=== PATIENT | male | born 1955 | race Caucasian/White ===

== ENCOUNTER 2021-03-30 16:36 | Emergency (ER) | payer MEDICARE, SELFPAY ==
--- NOTE | ~2021-03-30 | XR_ITS ---
EXAMINATION: XR chest 1V portable EXAM DATE: 03/30/2021 17:55 INDICATION: fever, cough, covid pui . TECHNIQUE: Portable AP frontal chest x-ray was obtained. There is no prior study for comparison. FINDINGS: There is moderate amount of bilateral ill-defined acute airspace disease consistent with CO VID pneumonia, most likely given community prevalence. No pneumothorax or pleural effusion. There is cardiomegaly. Mild to moderate thoracic spondylosis. IMPRESSION: 1. Moderate amount of acute airspace disease. COVID pneumonia? Reviewed, dictated and finalized at location A. PROGRAMMER
[2021-03-30 16:45] VITALS: BP 152/70; PULSE 90; RESP 18; TEMP 36.7; O2SAT 96
--- NOTE | 2021-03-30 18:52 | ED.URI ---
HPI - URI/Sore Throat General Chief Complaint: Upper Respiratory Infection Stated Complaint: i think i have covid Time Seen by Provider: 03/30/21 17:33 Source: patient Mode of arrival: ambulatory Limitations: no limitations History of Present Illness HPI Narrative: This is a 66 year old male that presents to the ER for cold symptoms present over the last week. Reports fever, myalgias and loss of sense of taste. He is not COVID vaccinated. Denies chest pain or shortness of breath. Review of Systems Review of Systems: CONSTITUTIONAL: Reports fever CARDIOVASCULAR: Denies chest pain RESPIRATORY: Denies cough or dyspnea. All systems reviewed & are unremarkable except as noted in HPI and below PMFSH Past Medical History Medical History (Updated 03/30/21 @ 19:43 by Emelina Webber PA-C) No active medical problems Social History Social History (Updated 03/30/21 @ 18:55 by Emelina Webber PA-C) Substance use: never Exam Narrative: GENERAL: Well-appearing, well-nourished, and in no acute distress. HEAD: Normocephalic, atraumatic. EYES: EOMI. ENT: Nares clear, no rhinorrhea or epistaxis. Mucous membranes moist. Oropharynx without tonsillar hypertrophy exudate or other lesions. Bilateral TMs pearly hernández non-bulging NECK: Supple. No adenopathy or masses. CHEST: No respiratory distress. Rales noted at the lung bases. No wheezes or rhonchi HEART: Regular rate and rhythm. No murmur heard. Normal peripheral pulses. EXTREMITIES: Normal range of motion. No edema. SKIN: Warm, dry, no rash. NEURO: No focal deficits. Alert and oriented x3. PSYCH: Normal mood and affect Course Vital Signs Vital signs: Vital Signs Temperature 98.0 F 03/30/21 16:45 Pulse Rate 90 03/30/21 16:45 Respiratory Rate 18 03/30/21 16:45 Blood Pressure 152/70 H 03/30/21 16:45 Pulse Oximetry 96 03/30/21 16:45 Temperature 98.0 F 03/30/21 16:45 Pulse Rate 90 03/30/21 16:45 Respiratory Rate 18 03/30/21 16:45 Blood Pressure 152/70 H 03/30/21 16:45 Pulse Oximetry 96 03/30/21 16:45 MDM - URI/Sore Throat MDM Narrative Medical decision making narrative: Patient presents to the emergency department for cold symptoms present over the last week. He is afebrile and nontoxic-appearing. Oxygen saturation has remained normal on room air. He denies any chest pain or shortness of breath. Influenza screen is negative. SARS-CoV-2 is pending. Chest x-ray is consistent with pneumonia, likely due to Covid. Pending swab patient will be started on oral antibiotics and was instructed on continued care of pneumonia. He is to follow-up with primary care doctor. He was given warnings to return to the ER Lab Data Attestation: I reviewed the patient's lab results. Labs: Lab Results 03/30/21 Range/Units 17:52 SARS-CoV-2 RNA (RT-PCR) Pending Influenza A Screen Negative Reference Range: Negative Influenza B Screen Negative Reference Range: Negative Imaging Data Radiologist's impression: ITS Impressions Chest X-Ray 03/30/21 17:58 IMPRESSION: 1. Moderate amount of acute airspace disease. COVID pneumonia? Critical Care Time Critical Care Time Critical Care Time: No Discharge Plan Discharge Clinical Impression: Person under investigation for COVID-19 Pneumonia Qualifiers: Pneumonia type: due to unspecified organism Laterality: bilateral Lung location: lower lobe of lung Qualified Code(s): J18.9 - Pneumonia, unspecified organism Patient Disposition: Home, Self-Care Condition: Stable Instructions: Antibiotic Form, Pneumonia (ED), COVID-19 (Coronavirus Disease 2019) (ED), How to Recover from COVID-19 at Home (ED) Additional Instructions: Return to the emergency department for worsening symptoms, or any other concerns Remain well-hydrated, get plenty of rest. Take
[2021-03-30 19:45] VITALS: BP 147/93; PULSE 92; RESP 16; O2SAT 95
[2021-03-30 20:29] VITALS: BP 129/85; PULSE 101; RESP 18; O2SAT 94
[2021-03-31 16:52] LABS: SARS-CoV-2 RNA PCR Positive
== END 2021-03-30 20:31 | disposition home or self-care (01) ==
PROVIDERS: Physician Assistant; Emergency Provider Emergency Medicine
DX: U07.1 COVID-19 (principal); J12.82 Pneumonia due to coronavirus disease 2019
CPT/HCPCS: 71045; 87804; 99283; C9803; U0003; U0005

== ENCOUNTER 2021-03-31 09:21 | Emergency (ER) | payer MEDICARE, SELFPAY ==
--- NOTE | ~2021-03-31 | CT_ITS ---
EXAMINATION:CT diagnostic chest wo con DATE: 03/31/2021 11:16 INDICATION: Shortness of breath. COVID-19 pneumonia. TECHNIQUE: Computed tomography (CT) of the chest was performed without intravenous contrast. Automate d exposure control and iterative reconstruction technique were employed. The dose-length product (DLP ) was 891.78 mGy-cm. COMPARISON: Chest single view 03/30/2021 FINDINGS: There are patchy groundglass opacities and crazy paving involving all lobes. There is mild scarring in paraspinal right lower lobe. No pleural effusion. The heart size is normal. No pericardia l effusion. There is a mildly enlarged mediastinal lymph node, likely reactive. There are gallstones in the gallbladder, which is normal in size. There is diffuse hepatic steatosis. There is severe cerv ical spondylosis and moderate thoracic spondylosis. There are bridging endplate osteophytes at multip le levels in the spine, consistent with diffuse idiopathic skeletal hyperostosis (DISH). IMPRESSION: 1. Diffuse lung disease, consistent with COVID-19 pneumonia. Reviewed, dictated and finalized at location A. ATIONS AGENT
--- NOTE | 2021-03-31 09:25 | ECG_ITS ---
Measurements Intervals [place] Rate: 84 P: 18 DC: 204 QRS: 19 QRSD: 85 T: 34 QT: 373 QTc: 443 Interpretive Statements SINUS RHYTHM BASELINE ARTIFACT- I, III, V2-V3, V5-V6 NORMAL ECG Electronically Signed On 03-31-2021 13:36:06 INSTRUMENTATION TECH by Umesh Snyder D.O.
[2021-03-31 09:46] VITALS: BP 140/91; PULSE 86; RESP 20; TEMP 37.5; O2SAT 96
[2021-03-31 09:54] LABS: Base Excess ABG 2.5 mmol/L (0-2); HCO3 ABG 25.4 mmol/L (23-29); Oxygen Content ABG 18.5 %vol (16.0-22.0); Oxyhemoglobin 89.6 % (94-100); PCO2 ABG 34.2 mmHg (35-45); PO2 ABG 54.5 mmHg (75-85); Total Hemoglobin 14.7 g/dL (12.0-18.0); pH ABG 7.49 (7.35-7.45)
[2021-03-31 09:59] LABS: Device ROOM AIR; Modified Allen's Test Pass; Site Drawn LEFT RADIAL
[2021-03-31] MEDS: ACETAMINOPHEN 325 MG TABLET 650 MG PO (10:08)
[2021-03-31 10:13] LABS: Hemoglobin 17.1 g/dL (12.4-15.3); Immature Platelet Fraction Pct 3.4 % (1.0-7.0); Mean Corpuscular HGB Conc 32.9 g/dL (32.0-36.0); Mean Corpuscular Hemoglobin 28.3 pg (27.0-31.0); Mean Platelet Volume 10.5 fl (8.7-11.0); Platelet Count Result 126 K/mm3 (150-420); Red Blood Count 6.05 M/mm3 (4.70-6.10); Red Cell Distribution Width 13.2 % (11.6-14.4); White Blood Count 3.5 K/mm3 (4.8-10.8)
[2021-03-31 10:17] LABS: Alanine Aminotransferase 49 U/L (16-63); Albumin Level 2.9 g/dL (3.4-5.0); Alkaline Phosphatase 59 U/L (46-116); Anion Gap 6 mmol/L (8-16); Aspartate Amino Transferase 61 U/L (15-37); Bilirubin,Total 0.3 mg/dL (0.00-1.00); Blood Urea Nitrogen 19 mg/dL (7-18); Calcium 8.5 mg/dL (8.5-10.1); Carbon Dioxide 29 mmol/L (21-32); Chloride 99 mmol/L (98-108); Estimated CRCL calculation 63 ml/min; Estimated Glomerular Filt Rate 51; Glucose 115 mg/dL (70-99); Osmolality Calculated 281 mOsm/kg (285-295); Potassium 4.2 mmol/L (3.5-5.1); Sodium 134 mmol/L (136-145); Total Protein 7.4 g/dL (6.4-8.2); Troponin I 16.9 ng/L (0.00-60.4)
[2021-03-31 10:43] LABS: Influenza A QL RT-PCR Negative (Negative); Influenza B QL RT-PCR Negative (Negative); SARS-CoV-2 RNA PCR Positive (Negative)
[2021-03-31 10:47] LABS: Band Neutrophils Percent 0 % (0-6); Eosinophils Percent Manual 0 % (1-6); Lymphocytes Absolute Manual 0.94 K/mm3 (1.1-4.5); Lymphocytes Percent Manual 27 % (18-44); Monocytes Absolute Manual 0.35 K/mm3 (0.1-0.90); Monocytes Percent Manual 10 % (3-9); Neutrophils Percent Manual 63 % (46-73); Total Cells Counted 100
[2021-03-31 10:48] LABS: Basophils Percent Manual 0 % (0-1); Platelet Estimate Adequate (Adequate)
[2021-03-31 11:08] VITALS: BP 132/89; PULSE 84; RESP 20; O2SAT 96
[2021-03-31] MEDS: DEXAMETHASONE SOD PHOS INJ 4 MG/ML VIAL IV PUSH (11:50)
[2021-03-31 11:51] LABS: Lactic Acid Reflex 1.7 mmol/L (0.4-2.0)
[2021-03-31] MEDS: SODIUM CHLORIDE 0.9% IV 500 ML 999 ML IV CONT (11:55)
[2021-03-31] MEDS: ALBUTEROL SULFATE (*SP) INHALER 4 PUFF INHALATION (12:00)
--- NOTE | 2021-03-31 12:46 | ED.URI ---
HPI - URI/Sore Throat General Chief Complaint: Upper Respiratory Infection Stated Complaint: AMBULANCE Time Seen by Provider: 03/31/21 09:25 Source: patient and RN notes reviewed Mode of arrival: ambulatory History of Present Illness HPI Narrative: mild SOB increasing. Pt has the virus. MD elicited complaint: cough Onset (ago): day(s) (2) Consistency: progressively worsening Severity: mild Pain scale (0-10): 0 Able to tolerate fluids by mouth: Yes Exacerbating factors: nothing Relieving factors: OTC cold medicine, cough suppressant and rest Associated symptoms: headache, nasal congestion, cough and shortness of breath Treatments prior to arrival: acetaminophen and ibuprofen Related Data Allergies Allergy/AdvReac Type Severity Reaction Status Date / Time No Known Allergies Allergy Verified 03/31/21 09:53 Review of Systems Review of Systems: All systems reviewed & are unremarkable except as noted in HPI and below Respiratory: Respiratory: Reports dyspnea and Reports wheezing PMFSH Past Medical History Medical History (Updated 04/21/21 @ 20:03 by Sonia Andrade MD) COVID-19 No active medical problems SOB (shortness of breath) Social History Social History (Updated 03/30/21 @ 18:55 by Emelina Webber PA-C) Substance use: never Exam Const: General: no acute distress and alert Orientation/consciousness: patient oriented x3 Limitations: no limitations HENMT: Head: normal to inspection Ears: external ears normal and TM's normal bilaterally General nose exam: Normal external nose present and Normal nares present Mouth: Yes lip normal and Yes moist mucous membranes Eyes: Conjunctivae: conjunctivae normal Pupils: Equal, round and reactive pupils present EOM: EOMs intact bilaterally Neck: Neck: normal visual inspection Chest: Chest palpation & inspection: normal inspection of the chest Resp: Effort & Inspection: normal respiratory effort Auscultation: crackles, rales, rhonchi and wheezes Cardio: Rate: regular rate Rhythm: regular rhythm GI: GI Palp: Yes Soft to palpation and No Tenderness to palpation present (GI) Auscultation: normal bowel sounds : General: Yes bladder normal to palpation and Yes no CVA tenderness Male General Exam: Yes normal external exam Back/Spine/Pelvis: Back: no CVA tenderness Skin: General skin exam: normal color Rashes: no rashes Neuro: General: patient oriented x3, moves all extremities, no meningeal signs, no focal motor deficits and CN's II-XI intact bilaterally Extrem: General: normal to inspection and no pedal edema Psych: Appearance: well kempt Mental Status: mental status grossly normal Affect: Anxious affect present Attitude: cooperative Thought content: Yes Normal thought content present Course Course Emergency Course: Pt was insistent on going home and was significantly improved. less SOB, no acute pain Reevaluation(s) Reevaluation #1: Improved VS, afebrile. Date: 03/31/21 Time: 10:23 Vital Signs Vital signs: Vital Signs Temperature 37.5 C 03/31/21 09:46 Pulse Rate 86 03/31/21 09:46 Respiratory Rate 20 03/31/21 09:46 Blood Pressure 140/91 H 03/31/21 09:46 Pulse Oximetry 96 03/31/21 09:46 Temperature 37.1 C 03/31/21 12:59 Pulse Rate 80 03/31/21 12:59 Respiratory Rate 20 03/31/21 12:59 Blood Pressure 106/67 03/31/21 12:59 Pulse Oximetry 92 03/31/21 12:59 MDM - URI/Sore Throat Differential Diagnosis Differential diagnosis: Likely upper respiratory infection and bronchitis Medical Records Attestation: I reviewed the patient's medical records. Lab Data Result diagrams: 03/31/21 09:53 03/31/21 09:53 Labs: Lab Results 03/31/21 03/31/21 03/31/21 Range/Units 09:53 09:53 09:53 WBC 3.5 L (4.8-10.8) K/mm3 RBC 6.05 (4.70-6.10) M/mm3 Hgb 17.1 H (12.4-15.3) g/dL Hct 52.0 H (37.0-46.0) % MCV 86.0 (78.0-102.0) fL MCH 28.3 (27.0-31.0) pg MCHC
[2021-03-31 12:59] VITALS: BP 106/67; PULSE 80; RESP 20; TEMP 37.1; O2SAT 92
== END 2021-03-31 13:10 | disposition home or self-care (01) ==
PROVIDERS: Emergency Provider Emergency Medicine
DX: U07.1 COVID-19 (principal)
CPT/HCPCS: 36415; 36600; 71250; 80053; 82805; 83605; 84484; 85025; 85055; 87040; 87081; 87502; 87804; 87880; 93005; 96365; 96375; 99283; 99284; A9270; C9803; J0696; J1100; J7040; U0003; U0005